=== PATIENT | female | born 1995 | race Caucasian/White ===

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

== ENCOUNTER 2023-07-16 11:44 | Emergency (ER) | payer MEDICARE ==
[~2023-07-16] VITALS: Ht 167.6 cm; Wt 109.5 kg
[~2023-07-16 11:44] MED LIST: ADDERALL10 MG PO; ALLEGRA 180MG180 MG PO; DOXYCYCLINE 10100 MG PO; FLONASEALLERGY NS; GLUCOSAMINE & C1 CA2 PO; IBU800 M1 PO; IMIQUIMOD5% TP; LASIX 40MG TABL40 MG PO; LIPITOR 40MG TA40 MG PO; MULTIPLE VITAMI1 CAP PO; NEURONTIN300 MG/CAP PO; PRILOSEC 20MG20 MG PO; PROSCAR 5MG5 MG PO; PROZAC 10MG10 MG PO; VITAMIN B PO; VITAMIN D1000 IU PO; XARELTO10 MG PO; ZYLOPRIM 300MG300 MG PO; [UNRECOGNIZED DRUG - OTHER] PO
[2023-07-16 11:45] VITALS: TEMP 98.2
[2023-07-16] MEDS ORDERED: NS 1,000 ML IV ONE (12:00)
[2023-07-16] MEDS ORDERED: Acetaminophen 500 MG TAB PO ONE (12:00)
[2023-07-16 12:45] LABS: BASO % 0.3 % (0.0-2.0); EOS # 0.1 K/mm3 (0.0-0.7); EOS % 0.9 % (0.0-4.0); GRAN % 66.1 % (42.2-75.2); HEMATOCRIT 46.6 % (37.0-47.0); HEMOGLOBIN 15.6 g/dl (12.5-16.0); LYMPH # 1.9 K/mm3 (1.2-3.4); LYMPH % 25.6 % (20.0-51.0); MEAN CELL VOLUME 90 fl (80.0-100.0); MEAN CORPUSCULAR HEMOGLOBIN 30 pg (27-31); MEAN CORPUSCULAR HGB CONC 34 g/dl (33.0-37.0); MEAN PLATELET VOLUME 9.7 fl (7.4-10.4); MONO # 0.5 K/mm3 (0.1-0.6); MONO % 6.8 % (1.7-9.3); PLATELET COUNT 253 K/mm3 (130-400); RED BLOOD COUNT 5.16 M/mm3 (4.10-5.30); REDCELL DISTRIBUTION WIDTH-CV 12.1 % (11.5-14.5)
[2023-07-16 12:59] LABS: ALBUMIN 3.9 g/dL (3.5-5.0); BILIRUBIN,TOTAL 0.6 mg/dL (0.2-1.2); CALCIUM 9.4 mg/dL (8.4-10.2); CREATININE, serum 0.99 mg/dL (0.57-1.11); POTASSIUM 3.5 mEq/L (3.5-4.5); TOTAL PROTEIN 7.9 g/dl (6.2-8.1)
[2023-07-16 13:08] LABS: COLLECTION METHOD CLEAN CATCH
[2023-07-16 13:29] LABS: PH 7.5 (5.0-8.5); URINE APPEARANCE CLEAR (CLEAR/HAZY); URINE BLOOD 2+ (NEGATIVE); URINE COLOR YELLOW (YELLOW); URINE GLUCOSE NEGATIVE (NEGATIVE); URINE KETONE NEGATIVE (NEGATIVE); URINE NITRATE NEGATIVE (NEGATIVE); URINE PROTEIN(semi-quant) NEGATIVE (NEGATIVE); URINE UROBILINOGEN 0.2 E.U/dL (0.2-1.0)
[2023-07-16] MEDS ORDERED: MACROBID 1100 MG/CAP PO (13:54)
[2023-07-16 14:07] VITALS: BP 106/67; PULSE 77
== END 2023-07-16 14:13 | disposition home or self-care (01) ==
LOC: COL.ER 11:44
PROVIDERS: Emergency Medicine
DX: G40.909 Epilepsy, unspecified, not intractable, without status epilepticus (principal); N39.0 Urinary tract infection, site not specified; R41.82 Altered mental status, unspecified; Z79.899 Other long term (current) drug therapy
CPT/HCPCS: J7030